=== PATIENT | male | born 1990 | race Two or more races ===

== ENCOUNTER 2024-01-11 17:13 | Emergency (ER) | payer OTHER ==
[~2024-01-11] VITALS: Ht 175.3 cm; Wt 87.5 kg
[2024-01-11] MEDS: SODIUM CHLORIDE 0.9% 1,000 ML IVB ONE (18:00)
[2024-01-11 18:22] LABS: Basophils # (auto) 0 10 ^3/uL (0-0.2); Basophils % (auto) 0.4 % (0.0-2.0); Eosinophils # (auto) 0.1 10 ^3/uL (0-0.8); Hemoglobin 16.7 g/dL (13.5-17.5); Lymphocytes # (auto) 1.1 10 ^3/uL (0.4-5.4); Lymphocytes % (auto) 19.2 % (10.0-50.0); Mean Corpuscular Hemoglobin 30.8 pg (28.0-32.0); Mean Corpuscular Hgb Conc. 34.7 g/dL (32.0-36.0); Mean Corpuscular Volume 88.7 fL (80.0-100.0); Monocytes # (auto) 0.8 10 ^3/uL (0-1.3); Monocytes % (auto) 13.9 % (0.0-12.0); Neutrophils # (auto) 3.8 10 ^3/uL (1.6-8.6); Neutrophils % (auto) 64.5 % (37.0-80.0); Nucleated Red Blood Cells % 0.2 %; Platelet Count (auto) 260 10^3/uL (140-450); Red Blood Cells 5.41 10^6/uL (4.5-5.90); Red Cell Distribution Width 12.8 % (11.8-14.3); White Blood Cell 5.9 10^3/uL (4.4-10.8)
[2024-01-11 18:39] LABS: Alanine Aminotransferase 54 U/L (7-40); Albumin 4.8 g/dL (3.2-4.8); Alkaline Phosphatase 73 U/L (46-116); Anion Gap 4 (5-15); Aspartate Aminotransferase 28 U/L (13-40); BUN/Creatinine Ratio 10.9 (10.0-20.0); Bilirubin, Total 0.9 mg/dL (0.2-1.0); Blood Urea Nitrogen 12 mg/dL (9-23); Calcium 9.6 mg/dL (8.7-10.4); Carbon Dioxide 28 mmol/L (20-31); Chloride 106 mmol/L (98-107); Glucose 114 mg/dL (74-106); Lipase 32 U/L (12-53); Potassium 3.8 mmol/L (3.5-5.1); Sodium 138 mmol/L (136-145); Total Protein 7.5 g/dL (5.7-8.2)
[2024-01-11] MEDS: KETOROLAC TROMETH 30 MG/ML 1ML VIAL IV ONE (18:42)
[2024-01-11] MEDS: PANTOPRAZOLE 40 MG/10 ML VIAL INJ IV ONE (18:42)
[2024-01-11] MEDS: ONDANSETRON HCL 4 MG/2 ML VIAL IV ONE (18:42)
[2024-01-11 18:49] VITALS: PULSE 71; RESP 19; O2SAT 96
[2024-01-11] MEDS ORDERED: IBUP-1453 PO (20:16)
[2024-01-11] MEDS ORDERED: PANT40TA2 PO (20:16)
[2024-01-11 20:29] VITALS: BP 111/68; PULSE 62; RESP 18; TEMP 98.3; O2SAT 96
== END 2024-01-11 20:29 | disposition home or self-care (01) ==
LOC: ER 17:13
DX: B34.9 Viral infection, unspecified (principal); K29.70 Gastritis, unspecified, without bleeding; G43.909 Migraine, unspecified, not intractable, without status migrainosus; Z90.49 Acquired absence of other specified parts of digestive tract; Z87.891 Personal history of nicotine dependence
CPT/HCPCS: 36415; 76705; 80053; 83690; 85025; 96374; 96375; 99285; J1885; J2405; J2470